=== PATIENT | female | born 1950 | race Two or more races ===

== ENCOUNTER 2020-06-06 12:54 | Emergency (ER) | payer OTHER ==
[~2020-06-06] VITALS: Ht 157.5 cm; Wt 64.0 kg
[2020-06-06] MEDS ORDERED: CRESTOR10 MG PO (12:57)
[2020-06-06] MEDS ORDERED: VITAMIN C100 MG PO (12:58)
[2020-06-06] MEDS ORDERED: VITAMIN D310 MCG/1 M PO (12:58)
[2020-06-06] MEDS ORDERED: PROTONIX40 M1 PO (12:58)
[2020-06-06] MEDS ORDERED: CIPRO500 MG PO (18:28)
== END 2020-06-06 18:38 | disposition home or self-care (01) ==
LOC: ER 12:54
DX: N39.0 Urinary tract infection, site not specified (principal); Z03.818 Encounter for observation for suspected exposure to other biological agents ruled out; R10.32 Left lower quadrant pain

== ENCOUNTER 2020-09-02 05:55 | Day surgery (SDC) | payer OTHER ==
[~2020-09-02 05:55] MED LIST: CIPRO500 MG PO; CRESTOR10 MG PO; PROTONIX40 M1 PO; VITAMIN C100 MG PO; VITAMIN D310 MCG/1 M PO
== END 2020-09-02 11:33 | disposition home or self-care (01) ==
LOC: AMB-ENDOS 05:55
PROVIDERS: ATTEND Surgery
DX: K62.89 Other specified diseases of anus and rectum (principal); K64.8 Other hemorrhoids; Z20.828 Contact with and (suspected) exposure to other viral communicable diseases